=== PATIENT | female | born 1960 | race Caucasian/White ===

== ENCOUNTER 2019-04-05 11:47 | Emergency (ER) | payer OTHER ==
[2019-04-05 12:36] LABS: Absolute Lymphocytes (CBC) 2.9 K/uL (0.7-4.9); Basophils % 0.7 % (0-1.3); Hematocrit 44.7 % (36.0-45.0); Lymphocytes % 34.1 % (15.3-44.8); MPV 7.7 fL (7.6-11.3); RBC Red Blood Cell Count 4.75 M/uL (3.86-4.86)
[2019-04-05 12:58] LABS: Albumin 4.2 g/dL (3.4-5.0); Bilirubin Direct 0.1 mg/dL (0-0.2); Bilirubin Total 0.5 mg/dL (0.2-1.0); Potassium 4.2 mmol/L (3.5-5.1)
[2019-04-05 13:02] LABS: Urine Blood NEGATIVE (NEG); Urine Glucose NEGATIVE (NEG); Urine Protein NEGATIVE (NEG)
[2019-04-05] MEDS ORDERED: NA CHLORIDE 0.9% 1,000 ML ONE (13:06)
--- NOTE | 2019-04-05 13:08 | RAD REPORT ---
EXAM DESCRIPTION: US - Abdomen Exam Limited - 04/05/2019 12:57 pm CLINICAL HISTORY: ABD PAIN COMPARISON: ABDOMINAL EXAM LIMITED dated 08/10/2012 FINDINGS: The gallbladder demonstrates no gallstones. No pericholecystic fluid or gallbladder wall t hickening. The common bile duct is normal measuring 6 mm. The liver demonstrates fatty liver. IMPRESSION: Negative gallbladder/ biliary tree findings Fatty liver
[2019-04-05] MEDS ORDERED: SUCRALFATE 1 GM TABLET ONE (13:54)
--- NOTE | 2019-04-05 14:03 | ER ---
Nurse's Notes [facility] Name: Doris Arcos Age: 58 yrs Sex: Female : 1960 Arrival Date: 04/05/2019 Time: 11:53 Bed 25 Private MD: Sharon Saleh R Diagnosis: Chest pain, unspecified;Gastro-esophageal reflux disease;Colic Presentation: 04/05 12:02 Presenting complaint: Patient states: for the last 4 day, omer been hurting on my RUQ hj stomach area, my R upper chest all the way to the R portion of my back, it happened after i ate a good Irish meal; reports nausea; denies fever rand chills; pain 8/10;. Transition of care: patient was not received from another setting of care. Onset of symptoms was April 05, 2019. Risk Assessment: Do you want to hurt yourself or someone else? Patient reports no desire to harm self or others. Initial Sepsis Screen: Does the patient meet any 2 criteria? No. Patient's initial sepsis screen is negative. Does the patient have a suspected source of infection? No. Patient's initial sepsis screen is negative. Care prior to arrival: None. 12:02 Method Of Arrival: Ambulatory 12:02 Acuity: MO 3 hj Historical: - Allergies: 12:04 No Known Allergies; hj - PMHx: 12:04 Hyperlipidemia; hj - PSHx: 12:04 Tonsillectomy; hand; Tubal ligation; Hysterectomy; hj - Immunization history:: Adult Immunizations up to date. - Social history:: Smoking status: Patient/guardian denies using tobacco. - Ebola Screening: : Patient negative for fever greater than or equal to 101.5 degrees Fahrenheit, and additional compatible Ebola Virus Disease symptoms Patient denies exposure to infectious person Patient denies travel to an Ebola-affected area in the 21 days before illness onset No symptoms or risks identified at this time. Screenin:10 Abuse screen: Denies threats or abuse. Denies injuries from another. Nutritional ca1 screening: No deficits noted. Tuberculosis screening: No symptoms or risk factors identified. Fall Risk IV access (20 points). Assessment: 12:10 General: Appears in no apparent distress. comfortable, Behavior is calm, cooperative, ca1 appropriate for age. Pain: Complains of pain in right upper quadrant and epigastric area Pain radiates to right subscapular area and right scapular area Pain currently is 7 out of 10 on a pain scale. at worst was 10 out of 10 on a pain scale. Quality of pain is described as dull, sharp, Pain began 2-3 days ago. Is intermittent. Neuro: Level of Consciousness is awake, alert, obeys commands, Oriented to person, place, time, situation, Appropriate for age. Cardiovascular: Heart tones S1 S2 present Capillary refill < 3 seconds Patient's skin is warm and dry. Respiratory: Airway is patent Respiratory effort is even, unlabored, Respiratory pattern is regular, symmetrical, Breath sounds are clear bilaterally. GI: Abdomen is round non-distended, Bowel sounds present X 4 quads. Abd is soft X 4 quads Abdomen is tender to palpation in right upper quadrant Reports nausea, Patient currently denies vomiting. : No deficits noted. No signs and/or symptoms were reported regarding the genitourinary system. EENT: No deficits noted. No signs and/or symptoms were reported regarding the EENT system. Derm: Skin is intact, is healthy with good turgor, Skin is pink, warm \T\ dry. Musculoskeletal: Circulation, motion, and sensation intact. Capillary refill < 3 seconds, Range of motion: intact in all extremities. 13:00 Reassessment: Patient appears in no apparent distress at this time. Patient and/or ca1 family updated on plan of care and expected duration. Pain level reassessed. Patient is alert, oriented x 3, equal unlabored respirations, skin warm/dry/pink. 14:00 Reassessment: Patient appears in no apparent distress at this time. Patient and/or ca1 family updated on plan of care and expected duration. Pain level reassessed. Patient is alert, oriented x 3, equal unlabored respirations, skin warm/dry/pink. 15:00 Reassessment: Patient appears in no apparent distress at this time. Patient is alert, ca1 oriented x 3, equal unlabored respirations, skin warm/dry/pink. Patient states feeling better. Vital Signs: 12:04 BP 183 / 76; Pulse 85; Resp 18; Temp 97.8(TE); Pulse Ox 97% on R/A; Weight 95.25 kg; hj Height 5 ft. 0 in. (152.40 cm); Pain 8/10; 13:52 BP 115 / 59; Pulse 84; Resp 19; Pulse Ox 95% on R/A; ca1 15:00 BP 121 / 61; Pulse 83; Resp 16 S; Pulse Ox 98% on R/A; ca1 12:04 Body Mass Index 41.01 (95.25 kg, 152.40 cm) ED Course: 11:51 Vane Madrid FNP-C is [facility]. snw 11:51 Elton Duggan MD is Attending Physician. snw 11:53 Patient arrived in ED. rg4 11:53 Sharon Saleh MD is Private Physician. rg4 12:04 Triage completed. hj 12:04 Arm band placed on right wrist. hj 12:07 Celena Umana, HERNANDEZ is Primary Nurse. ca1 12:10 Patient has correct armband on for positive identification. Placed in gown. Bed in low ca1 position. Call light in reach. Side rails up X 1. Pulse ox on. NIBP on. Warm blanket given. 12:15 Urine collected: clean catch specimen, clear, raissa colored. jp3 12:25 No provider procedures requiring assistance completed. Inserted saline lock: 20 gauge ca1 in left antecubital area, using aseptic technique. Blood collected. 13:02 US Abdomen Limited In Process Unspecified. EDMS 14:00 Sharon Saleh MD is Referral Physician. snw 14:18 EKG done, by ED staff. sm3 15:00 IV discontinued, intact, bleeding controlled, No redness/swelling at site. Pressure ca1 dressing applied. Administered Medications: 12:30 Drug: NS 0.9% 1000 ml Route: IV; Rate: 75 ml/hr; Site: left antecubital; ca1 13:48 Drug: CarafATE 1 grams Route: PO; ca1 14:20 Follow up: Response: No adverse reaction ca1 14:26 Drug: ProTONIX 40 mg Route: IVP; Site: left antecubital; ca1 14:30 Follow up: Response: Medication administered at discharge. ca1 Outcome: 14:01 Discharge ordered by . snw 15:00 Discharged to home ambulatory. ca1 15:00 Condition: stable 15:00 Discharge instructions given to patient, Instructed on discharge instructions, follow up and referral plans. medication usage, Demonstrated understanding of instructions, follow-up care, medications, Prescriptions given X 1. 15:03 Patient left the ED. ca1 Signatures: Dispatcher [employer] EDMS Vane Madrid, FULL STACK DEVELOPER-C FULL STACK DEVELOPER-Csnw Jun Trevino, RN RN Cindi Stanley rg4 Mariely Carlson sm3 Shoaib Ponce jp3 Celena Umana RN RN ca1 Corrections: (The following items were deleted from the chart) 12:06 12:02 Presenting complaint: Patient states: for the last 4 day, omer been hurting on my hj RUQ, my R upper chest all the way to the R portion of my back, it happened after i ate a good Irish meal; reports nausea; denies fever rand chills; pain 8/10; hj 12:06 12:04 Pulse 85bpm; Resp 18bpm; Pulse Ox 97% RA; Temp 97.8F Temporal; 95.25 kg; Height 5 hj ft. 0 in.; BMI: 41.0; Pain 8/10; hj 21:38 15:00 Discharge instructions given to patient, Instructed on discharge instructions, ca1 follow up and referral plans. medication usage, Demonstrated understanding of instructions, follow-up care, medications, Prescriptions given X 2, ca1
--- NOTE | 2019-04-05 14:04 | EDPHYS ---
Physician Documentation [facility] Name: Doris Arcos Age: 58 yrs Sex: Female : 1960 Arrival Date: 04/05/2019 Time: 11:53 Bed 25 Private MD: Sharon Saleh R ED Physician Elton Duggan HPI: 04/05 12:26 This 58 yrs old Female presents to ER via Ambulatory with complaints of Flank snw Pain. 12:26 The patient complains of pain in the right scapular area and right subscapular area. snw The pain does not radiate. Onset: The symptoms/episode began/occurred gradually, and became worse 3 day(s) ago. Modifying factors: The symptoms are alleviated by nothing. the symptoms are aggravated by food/fluids. Associated signs and symptoms: Pertinent positives: nausea, SOB with bending over. Severity of pain: At its worst the pain was moderate. It is unknown whether or not the patient has had similar symptoms in the past. It is unknown whether or not the patient has recently seen a physician, sees Dr. Ruano. Historical: - Allergies: 12:04 No Known Allergies; hj - PMHx: 12:04 Hyperlipidemia; hj - PSHx: 12:04 Tonsillectomy; hand; Tubal ligation; Hysterectomy; hj - Immunization history:: Adult Immunizations up to date. - Social history:: Smoking status: Patient/guardian denies using tobacco. - Ebola Screening: : Patient negative for fever greater than or equal to 101.5 degrees Fahrenheit, and additional compatible Ebola Virus Disease symptoms Patient denies exposure to infectious person Patient denies travel to an Ebola-affected area in the 21 days before illness onset No symptoms or risks identified at this time. ROS: 12:24 Constitutional: Negative for fever, chills, and weight loss, Eyes: Negative for injury, snw pain, redness, and discharge, ENT: Negative for injury, pain, and discharge, Neck: Negative for injury, pain, and swelling, Cardiovascular: Negative for chest pain to left, + pain across right chest, negative for palpitations and edema, Respiratory: Negative for shortness of breath, cough, wheezing, and pleuritic chest pain, Back: Negative for injury and pain, : Negative for injury, bleeding, discharge, and swelling, MS/Extremity: Negative for injury and deformity, Skin: Negative for injury, rash, and discoloration, Neuro: Negative for headache, weakness, numbness, tingling, and seizure. 12:24 Abdomen/GI: Positive for abdominal pain, nausea, abdominal cramps, abdominal distension, of the epigastric area and right upper quadrant. Exam: 12:24 Constitutional: This is a well developed, well nourished patient who is awake, alert, snw and in no acute distress. Head/Face: Normocephalic, atraumatic. Eyes: Pupils equal round and reactive to light, extra-ocular motions intact. Lids and lashes normal. Conjunctiva and sclera are non-icteric and not injected. Cornea within normal limits. Periorbital areas with no swelling, redness, or edema. ENT: Nares patent. No nasal discharge, no septal abnormalities noted. Tympanic membranes are normal and external auditory canals are clear. Oropharynx with no redness, swelling, or masses, exudates, or evidence of obstruction, uvula midline. Mucous membranes moist. Neck: Trachea midline, no thyromegaly or masses palpated, and no cervical lymphadenopathy. Supple, full range of motion without nuchal rigidity, or vertebral point tenderness. No Meningismus. Chest/axilla: Normal chest wall appearance and motion. Nontender with no deformity. No lesions are appreciated. Cardiovascular: Regular rate and rhythm with a normal S1 and S2. No gallops, murmurs, or rubs. Normal PMI, no JVD. No pulse deficits. Respiratory: Lungs have equal breath sounds bilaterally, clear to auscultation and percussion. No rales, rhonchi or wheezes noted. No increased work of breathing, no retractions or nasal flaring. Abdomen/GI: Soft, non-tender, with normal bowel sounds. No distension or tympany. No guarding or rebound. No evidence of tenderness throughout. Back: No spinal tenderness. No costovertebral tenderness. Full range of motion. Skin: Warm, dry with normal turgor. Normal color with no rashes, no lesions, and no evidence of cellulitis. MS/ Extremity: Pulses equal, no cyanosis. Neurovascular intact. Full, normal range of motion. Neuro: Awake and alert, GCS 15, oriented to person, place, time, and situation. Cranial nerves II-XII grossly intact. Motor strength 5/5 in all extremities. Sensory grossly intact. Cerebellar exam normal. Normal gait. Psych: Awake, alert, with orientation to person, place and time. Behavior, mood, and affect are within normal limits. 13:50 ECG was reviewed by the Attending Physician. snw Vital Signs: 12:04 BP 183 / 76; Pulse 85; Resp 18; Temp 97.8(TE); Pulse Ox 97% on R/A; Weight 95.25 kg; hj Height 5 ft. 0 in. (152.40 cm); Pain 8/10; 13:52 BP 115 / 59; Pulse 84; Resp 19; Pulse Ox 95% on R/A; ca1 15:00 BP 121 / 61; Pulse 83; Resp 16 S; Pulse Ox 98% on R/A; ca1 12:04 Body Mass Index 41.01 (95.25 kg, 152.40 cm) hj MDM: 12:06 Patient medically screened. viviana 14:04 Data reviewed: vital signs, nurses notes. Data interpreted: Pulse oximetry: on room air snw is 95 %. Interpretation: acceptable. Counseling: I had a detailed discussion with the patient and/or guardian regarding: the historical points, exam findings, and any diagnostic results supporting the discharge/admit diagnosis, lab results, radiology results, the need for outpatient follow up, to return to the emergency department if symptoms worsen or persist or if there are any questions or concerns that arise at home. Special discussion: Based on the patient's history, exam, and Dx evaluation, there is no indication for emergent intervention or inpatient Tx. It is understood by the patient/guardian that if the Sx's persist or worsen they need to return immediately for re-evaluation. Based on the patient's Hx, exam, and Dx evaluation, there is no indication for emergent surgery or inpatient Tx. It is understood by the patient/guardian that if the Sx's persist or worsen they need to return immediately for re-evaluation. Based on the history and exam findings, there is no indication for further emergent testing or inpatient evaluation. I discussed with the patient/guardian the need to see the primary care provider for further evaluation of the symptoms. 04/05 12:13 Order name: Basic Metabolic Panel; Complete Time: 12:59 snw 04/05 12: Order name: CBC with Diff; Complete Time: 12:47 snw 08 12:13 Order name: Creatinine for Radiology; Complete Time: 12:59 snw 04/05 12:13 Order name: Hepatic Function; Complete Time: 12:59 snw 12 12:13 Order name: Lipase; Complete Time: 12:59 snw 12 12:13 Order name: US Abdomen Limited; Complete Time: 13:16 snw 04/05 12:19 Order name: Troponin (emerg Dept Use Only); Complete Time: 13:16 snw 04/05 12:22 Order name: Urine Dipstick--Ancillary (enter results); Complete Time: 13:16 bd 04/05 13:29 Order name: EKG; Complete Time: 13:34 snw 04/05 12:03 Order name: Urine Dipstick-Ancillary (obtain specimen); Complete Time: 12:17 snw 04/05 12:13 Order name: IV Saline Lock; Complete Time: 12:25 snw 04/05 12:13 Order name: Labs collected and sent; Complete Time: 12:25 snw 04/05 13:29 Order name: EKG - Nurse/Tech; Complete Time: 13:47 snw 04/05 13:47 Order name: Recheck VS; Complete Time: 13:51 snw EC:50 Rate is 68 beats/min. Rhythm is regular. QRS [place] is Normal. AL interval is normal. QRS snw interval is normal. QT interval is normal. No Q waves. T waves are Normal. No ST changes noted. Clinical impression: Normal ECG. Administered Medications: 12:30 Drug: NS 0.9% 1000 ml Route: IV; Rate: 75 ml/hr; Site: left antecubital; ca1 13:48 Drug: CarafATE 1 grams Route: PO; ca1 14:20 Follow up: Response: No adverse reaction ca1 14:26 Drug: ProTONIX 40 mg Route: IVP; Site: left antecubital; ca1 14:30 Follow up: Response: Medication administered at discharge. ca1 Disposition: 15:29 Co-signature as Attending Physician, Elton Duggan MD. rn Disposition: 04/05/19 14:01 Discharged to Home. Impression: Chest pain, unspecified, Gastro-esophageal reflux disease, Colic. - Condition is Stable. - Discharge Instructions: Biliary Colic, Adult, Nonspecific Chest Pain, Chest Wall Pain, Fat and Cholesterol Restricted Diet, Gastroesophageal Reflux Disease, Adult. - Prescriptions for Protonix 40 mg Oral Tablet - take 1 tablet by ORAL route once daily; 30 tablet. - Work release form, Medication Reconciliation Form, Thank You Letter, Antibiotic Education, Prescription Opioid Use form. - Follow up: Sharon Saleh MD; When: 2 - 3 days; Reason: Recheck today's complaints, Continuance of care, Re-evaluation by your physician. Follow up: Emergency Department; When: As needed; Reason: Worsening of condition. Signatures: Dispatcher [employer] EDMS Abundio Portillo MD MD cha Therrien, Shelly, MACHINE WOODWORKING SANDER-C MACHINE WOODWORKING SANDER-Csnw Elton Duggan MD MD rn Joaquin, Henry RN HERNANDEZ hj Celena Umana RN RN ca1 Corrections: (The following items were deleted from the chart) 14:24 12:03 UA MICROSCOPIC+U.LAB.BRZ ordered. EDGA EDGA 15:03 14:01 04/05/2019 14:01 Discharged to Home. Impression: Chest pain, unspecified; ca1 Gastro-esophageal reflux disease; Colic. Condition is Stable. Forms are Medication Reconciliation Form, Thank You Letter, Antibiotic Education, Prescription Opioid Use. Follow up: Sharon Saleh; When: 2 - 3 days; Reason: Recheck today's complaints, Continuance of care, Re-evaluation by your physician. Follow up: Emergency Department; When: As needed; Reason: Worsening of condition. snw
--- NOTE | 2019-04-05 14:20 | EKG ---
Test Date: 2019-04-05 Test Time: 13:45:05 Jboss Developer: ZOLTAN MEASUREMENT RESULTS: Intervals: Rate: 68 DE: 164 QRSD: 76 QT: 422 QTc: 448 [place]: P: 60 DE: 164 QRS: 47 T: 28 INTERPRETIVE STATEMENTS: Normal sinus rhythm Normal ECG Compared to ECG 04/03/2017 08:08:46 No significant changes Electronically Signed On 04-05-19 14:19:46 CDT by Marvin Oden
[2019-04-05] MEDS ORDERED: PANTOPRAZOLE 40 MG INJ ONE (14:28)
[2019-04-05] MEDS ORDERED: WATER FOR INJ,STERILE 10 ML ONE (14:28)
== END 2019-04-05 15:03 | disposition home or self-care (01) ==
LOC: ER 11:47
DX: K21.9 Gastro-esophageal reflux disease without esophagitis (principal); E78.5 Hyperlipidemia, unspecified
CPT/HCPCS: 93005; 85025; 80048; 36415; 80076; 81003; 84484; 83690; 76705; 96374; 99284; C9113; J7030

== ENCOUNTER 2019-04-14 08:29 | Day surgery (SDC) | payer OTHER ==
[~2019-04-14 08:29] MED LIST: FENTANYL CITR 250 MCG/5 ML ONE; GLYCOPYRROLATE 0.2 MG/ML SYR ONE; LIDOCAINE 2% MPF 5 ML VIAL ONE; MIDAZOLAM HCL 2 MG/2 ML INJ ONE; PROPOFOL 200 MG/20 ML VIAL IV ONE; ROCURONIUM 50 MG/5 ML VIAL IV ONE
[2019-04-14] MEDS ORDERED: ONDANSETRON 4 MG/2 ML VIAL ONE (08:31)
[2019-04-14] MEDS ORDERED: NEOSTIGMINE 1 MG/ML -10 ML VIAL ONE (08:31)
[2019-04-14 08:37] LABS: Absolute Lymphocytes (CBC) 3.2 K/uL (0.7-4.9); Basophils % 0.8 % (0-1.3); Hematocrit 43.1 % (36.0-45.0); Lymphocytes % 37.1 % (15.3-44.8); MPV 7.9 fL (7.6-11.3)
--- NOTE | 2019-04-14 08:43 | RAD REPORT ---
EXAM DESCRIPTION: RAD - Chest Pa And Lat (2 Views) - 04/14/2019 8:27 am CLINICAL HISTORY: preop Chest pain. COMPARISON: Chest Pa And Lat (2 Views) dated 04/03/2017 FINDINGS: The lungs are clear. The heart is normal in size. No displaced fractures. IMPRESSION: No acute or concerning finding suspected.
[2019-04-14 08:52] LABS: Potassium 3.9 mmol/L (3.5-5.1)
[2019-04-14] MEDS ORDERED: Ringers Lactate 1,000 ML IV ONE ×2 (08:52→09:09)
[2019-04-14] MEDS ORDERED: CEFOXITIN/SWI 1gm 1 GM/10 ML SYR ONE (08:52)
[2019-04-14] MEDS ORDERED: EPHEDRINE SULF 50 MG/ML VIAL ONE (09:43)
[2019-04-14] MEDS: HYDROMORPHONE HCL 1 MG/ML INJ ONE ×5 (10:00→11:22)
[2019-04-14] MEDS ORDERED: Mastisol Adhesive Liq ONE (10:05)
[2019-04-14] MEDS ORDERED: HYDROMORPHONE HCL 1 MG/ML INJ ONE (10:34)
[2019-04-14] MEDS ORDERED: PROMETHAZINE 25 MG/ML VIAL ONE (10:44)
[2019-04-14] MEDS ORDERED: MEPERIDINE HCL 25 MG/0.5 ML ONE (11:31)
--- NOTE | 2019-04-14 21:32 | OP ---
Date of Procedure: 04/14/2019 Surgeon: Kenneth Vanegas MD Acds Block 1 Operator: JO Duenas Preoperative Diagnoses: Chronic cholecystitis and biliary dyskinesia. Postoperative Diagnoses: Chronic cholecystitis and biliary dyskinesia. Procedure: Laparoscopic cholecystectomy. Estimated Blood Loss: Minimal. Specimen: Gallbladder. Findings: As above. Anesthesia: General. Complications: None. Disposition: The patient tolerated the procedure in stable condition, taken to Recovery in good gene ral condition. Description Of Procedure: The patient was brought to the OR and placed in supine position. General anesthesia was begun. The patient was prepped and draped in the usual sterile fashion. Marcaine 0.5 % was infiltrated locally. A 15-blade was used to make a 1 cm supraumbilical midline incision. Subc utaneous tissue was divided. Fascia was identified and divided. #1 Vicryl stay suture was placed. Peritoneal cavity was entered with sharp and blunt dissection. A 12 mm trocar was placed into the pe ritoneal cavity under direct vision. Pneumoperitoneum was established. Then, three 5-mm trocars cresencio robbin, 1 in the epigastrium just to the right of midline and 2 in the right subcostal region. Laparosc opy revealed chronic inflammation of the gallbladder. Fundus retracted superiorly. Infundibulum was identified and retracted inferolaterally. Cystic duct and cystic artery were clearly identified wit h blunt dissection. Clips were placed. Both structures were divided. Cautery was used to remove th e gallbladder from the liver bed. Bleeding on the liver bed was controlled with cautery. The gallbl adder was retrieved through the umbilicus via an EndoCatch bag. Right upper quadrant was irrigated. Effluent was clear. No evidence of bleeding or bile leakage appreciated. Subsequently, all trocars were removed under direct vision. Stay sutures were tied to each other to approximate the fascial d efect. Subsequently, wound was irrigated. Bleeding controlled with cautery. A 3-0 chromic was used for subcutaneous tissue and close the skin. Sterile dressing was applied. Patient was awakened and taken to Recovery in good general condition. Discharge Note: Patient will go to Day Surgery and home when stable. Disposition: Home. Condition: Stable. Discharge Instructions: Resume home medications and diet. Activity as tolerated. No heavy lifting. Remove outer dressing in 2 days. Shower. Keep wound clean and dry. Keep Steri-Strips on at all t imes. Follow up in my office in 1 week, call for appointment. Tylenol No. 3 one tablet p.o. q.4 p.r .n. pain. Incentive spirometry and abdominal binder as ordered. LOU/KERRYL Voice ID: [id number] Report ID: [id number]
== END 2019-04-14 13:30 | disposition home or self-care (01) ==
LOC: OR 08:29
PROVIDERS: ATTEND Surgery
PROC: 0FT44ZZ Resection of Gallbladder, Percutaneous Endoscopic Approach (ICD-10-PCS; principal; 2019-04-14 09:00)
DX: K81.1 Chronic cholecystitis (principal); G47.30 Sleep apnea, unspecified; E66.8 Other obesity; Z68.41 Body mass index [BMI] 40.0-44.9, adult; Z80.0 Family history of malignant neoplasm of digestive organs; Z82.3 Family history of stroke
CPT/HCPCS: 85025; 80048; 36415; 88304; 71046; 47562; J2704; J2710; J2550; J2250; J3010; J2175; J1170 ×3; J2405